=== PATIENT | male | born 1975 | race Caucasian/White ===

== ENCOUNTER 2019-04-22 13:36 | Emergency (ER) | payer SELFPAY ==
--- NOTE | 2019-04-22 13:39 | Emergency Department Record ---
History of Present Illness - General Chief complaint: GI Bleed Stated complaint: BLOOD IN STOOL Time Seen by Provider: 04/22/19 13:39 Source: Patient Mode of Arrival: Ambulatory Limitations: No limitations - History of Present Illness Initial comments: 43 yo male presents after recently noting blood in his stool last night. He noticed the blood with a bowel movement. No fevers or chills. He did have some nausea, vomiting and abdominal pain. The abdominal pain is in the left lower abdomen. He denies and history of GI disease. No history of colonoscopy. He has had upper GI scope that was normal in the past. He reports he has had cycles of pain and bloating many times in the past. The pain is usually resolved with passing of flatus. This has not resolved the pain currently. MD complaint: Gross hematochezia -: Days(s) (3) Radiation: LLQ Quality: Sharp, Other (aches) Consistency: Constant Improves with: None Worsens with: Bowel movement Context: Other Associated Symptoms: Abdominal pain, Loss of appetite, Nausea, Vomiting Treatments Prior to Arrival: None - Related Data Previous Rx's Medication Instructions Recorded Ciprofloxacin HCl [Cipro] 500 mg PO Q12HR #14 tablet 04/22/19 Metronidazole [Flagyl] 500 mg PO Q8H #21 tablet 04/22/19 Allergies Allergy/AdvReac Type Severity Reaction Status Date / Time No Known Drug Allergies Allergy Verified 04/22/19 13:48 Review of Systems Constitutional: Denies: Chills, Fever, Malaise, Weakness Eyes: Denies: Eye discharge ENT: Denies: Congestion, Throat pain Respiratory: Denies: Cough, Dyspnea Cardiovascular: Denies: Chest pain, Syncope Endocrine: Denies: Fatigue Gastrointestinal: Reports: Hematochezia. Denies: Diarrhea, Hematemesis, Nausea, Vomiting Genitourinary: Denies: Dysuria, Frequency, Hematuria, Urgency Musculoskeletal: Denies: Arthralgia, Back pain, Myalgia Skin: Denies: Bruising, Change in color, Rash Neurological: Denies: Headache Psychiatric: Denies: Anxiety Hematological/Lymphatic: Denies: Easy bleeding, Easy bruising Physical Exam - General General Appearance: Alert, Oriented x3, Cooperative, No acute distress Limitations: No limitations - Head Head exam: Atraumatic, Normal inspection - Eye Eye exam: Normal appearance, PERRL. negative: Conjunctival injection, Scleral icterus - ENT ENT exam: Normal exam, Mucous membranes moist Ear exam: Normal external inspection Nasal Exam: Normal inspection Mouth exam: Normal external inspection - Neck Neck exam: Normal inspection - Respiratory Respiratory exam: Normal lung sounds bilaterally - Cardiovascular Cardiovascular Exam: Regular rate, Normal rhythm, Normal heart sounds - GI/Abdominal GI/Abdominal exam: Soft. negative: Tenderness - Extremities Extremities exam: Normal inspection - Back Back exam: Denies: CVA tenderness (R), CVA tenderness (L) - Neurological Neurological exam: Alert, Oriented X3 - Psychiatric Psychiatric exam: Normal affect, Normal mood - Skin Skin exam: Dry, Intact, Normal color, Warm Course - Reevaluation(s) Reevaluation #1: 04/22/19 14:12 The CBC was reviewed The WBC is 13.3 The Hgb is 15.2 04/22/19 14:22 The CMP was reviewed The TBili is 1.4, the AST is 59, and ALT is 71. 04/22/19 14:28 Rectal examination was completed Normal inspection. No visible fissure or hemorrhoid. The stool was brown. The stool was heme negative with a positive control 04/22/19 16:[address] scan was reviewed. The patient has mild diverticulitis without abscess or complications He is eating and drinking. His pain is mild and controlled. We discussed the results of the tests and questions were answered. He is a good outpatient candidate for treatment The patient is doing well and is comfortable with DC. We discussed at length reasons to immediately return to the ED as well as close follow up. The patient will call the PCP for close follow up of this ED visit to review this visit and the tests performed We discussed no alcohol with yl and to monitor for joint or tendon pain while on Cipro I instructed him to follow up the CT of the lung nodule in on year The patient was given a copy of the radiology reports to review with their family doctor for follow up Medical Decision Making - Lab Data Result diagrams: 04/22/19 13:56 04/22/19 13:56 Disposition Disposition: Discharge Clinical Impression: GI bleed, Diverticulitis Disposition: Home, Self-Care Condition: (1) Good Instructions: Gastrointestinal Bleeding (ED), Diverticulitis (ED) Additional Instructions: Review this ER visit and the tests performed with your family doctor Call your doctor for the next available follow up appointment You have been referred to the outpatient GI clinic at [facility] for the symptoms that brought you into the ER Return to the ER for a recheck immediately if worse, any new concerns or questions Prescriptions: Ciprofloxacin HCl [Cipro] 500 mg PO Q12HR #14 tablet Metronidazole [Flagyl] 500 mg PO Q8H #21 tablet Referrals: ALMA ESPINOZA [DOCTOR OF OSTEOPATH] - [facility] Special[facility] Clin[facility] [Provider Group] Forms: Patient Portal Access Quality - Quality Measures Quality Measures: N/A - Blood Pressure Screening Does Patient Have Any of the Following: No Blood Pressure Classification: Hypertensive Reading Systolic Measurement: 139 Diastolic Measurement: 91 Screening for High Blood Pressure: < Pre-Hypertensive BP, F/U Documented > [G8950] Pre-Hypertensive Follow-up Interventions: Referral to alternative/primary care provider.
[2019-04-22] MEDS ORDERED: ONDANSETRON HCL IV 4 MG/2 ML VIAL IVP ONE (13:53)
[2019-04-22] MEDS ORDERED: 0.9 % SODIUM CHLORIDE 1,000 ML BAG IV ONE (13:54)
[2019-04-22 14:01] LABS: ABSOLUTE NEUTROPHIL COUNT 11.39; BASO % 0.1 % (0-6); EOS % 0.7 % (0-6); HEMATOCRIT 46.1 % (42.0-52.0); HEMOGLOBIN 15.2 gm/dl (14.0-18.0); LYMPH % 2.3 % (16-45); MEAN CELL VOLUME 85.8 fl (81-97); MEAN CORPUSCULAR HEMOGLOBIN 28.3 pg (27-33); MEAN PLATELET VOLUME 9.7 fl (7.4-10.4); MONO % 11.2 % (0-9); PLATELET COUNT 215 K/uL (130-400); RED BLOOD COUNT 5.37 M/uL (4.40-5.70); WHITE BLOOD COUNT W/O DIFF 13.3 K/uL (4.2-12.2)
[2019-04-22 14:11] LABS: BLOOD UREA NITROGEN 17 mg/dL (6-20); CREATININE 1.1 mg/dL (0.7-1.2); EST GLOMERULAR FILTRATION RATE > 60 mL/min
[2019-04-22 14:12] LABS: TOTAL PROTEIN 7.7 g/dL (6.6-8.7)
[2019-04-22 14:14] LABS: GLUCOSE,RANDOM 116 mg/dL (74-109)
[2019-04-22 14:17] LABS: ALB/GLOB RATIO 1.3 (1.1-1.8); ALBUMIN 4.3 g/dL (4.0-5.0); ALKALINE PHOSPHATASE 98 U/L (40-129); ALT/SGPT 71 U/L (<41); AST/SGOT 59 U/L (10.0-50.0)
[2019-04-22 14:25] LABS: ANISOCYTOSIS 1+; PLATELET ESTIMATE NORMAL (NORMAL); TOXIC GRANULATION 1+
--- NOTE | 2019-04-22 15:54 | CT SCAN REPORT ---
EXAMINATION: CT Abdomen and Pelvis with IV Contrast EXAM DATE: 04/22/2019 3:41 PM TECHNIQUE: CT imaging of the abdomen and pelvis was performed with intravenous contrast. Coronal and sagittal images were reconstructed. IV Contrast: The amount and type of contrast are recorded in the medical record. INDICATION: LLQ pain, blood in stool last night. COMPARISON: None The current CT hotel general manager radiograph does not disclose any acute abnormality. CT ABDOMEN AND PELVIS FINDINGS: Lung Bases: Scans through the lung bases do not disclose any acute pulmonary infiltrates or pleural/p ericardial effusions. There is a 2 mm nodular density anteriorly at the right lung base and if this r epresents a small pulmonary nodule such nodules of this size generally not of clinical significance h owever if indicated this could be further evaluated with follow-up CT in one year. Hepatobiliary: The liver has a normal size with a smooth surface. The hepatic and portal veins appear patent. No radiopaque gallstones or biliary dilatation. Pancreas: The pancreas is normal. Spleen: The spleen is not enlarged. Adrenals: The adrenal glands are normal. Kidneys, Ureters, & Bladder: There are no radiopaque renal stones and the kidneys appear normal with prompt bilateral contrast excretion. Along the anticipated course of the ureters there are no radiop aque renal stones or obstructive uropathy. The urinary bladder appears normal. Gastrointestinal: There is colonic diverticulosis and short segment abnormality of the mid to distal sigmoid colon with wall thickening and infiltration of the adjacent fat with trace fluid and without significant extraluminal gas. The findings are compatible with acute sigmoid diverticulitis. Elsewher e no acute colonic abnormality is seen. The appendix is normal. No acute small bowel abnormality is s een. The stomach appears normal. Reproductive Organs: There is no free pelvic fluid or pelvic mass. There is a small fat-containing le ft inguinal hernia. Lymphatic System: There is no mesenteric, retroperitoneal or pelvic lymphadenopathy. Vasculature: Normal caliber abdominal aorta. Peritoneum: There is no abdominal fluid or free air. Abdominal Wall & Musculoskeletal: No acute abdominal wall abnormality is seen. Images at bone window demonstrate degenerative features without acute abnormality seen. IMPRESSION: Findings compatible with acute sigmoid diverticulitis without abscess or significant extraluminal air at this time. Additional comments as above. Dictated by: Micheal Garrison MD on 04/22/2019 3:40 PM. .
[2019-04-22] MEDS ORDERED: METRONIDAZOLE 250 MG TABLET PO ONE (16:00)
[2019-04-22] MEDS ORDERED: CIPROFLOXACIN HCL 500 MG TABLET PO ONE (16:00)
== END 2019-04-22 16:17 | disposition home or self-care (01) ==
LOC: ER 13:36
DX: K57.31 Diverticulosis of large intestine without perforation or abscess with bleeding (principal); R10.32 Left lower quadrant pain; R11.2 Nausea with vomiting, unspecified
CPT/HCPCS: 74177; 80053; 85027; 85610; 85730; 96361; 96374; 99284; J2405; J7030